=== PATIENT | male | born 1990 | race Caucasian/White ===

== ENCOUNTER 2025-06-11 20:58 | Observation (INO) ==
--- NOTE | 2025-06-11 21:14 | Emergency Department Note ---
ED Provider Note NAME: JAYCEE ROBLEDO III AGE: 34 SEX: M : 1990 ARRIVES VIA: Walk-In INFORMANT: [Patient][, ] ED PROVIDER(S): [Karan Gomes MD] CHIEF COMPLAINT: Outpatient referral for transfusion MEDICAL DECISION MAKING: Patient presents with the above. Patient significantly tachycardic and at the bedside with left-sided abdominal pain. Patient does have a known history of metastases secondary to testicular cancer. Blood work was obtained consent was completed for transfusion as the patient's outpatient blood work had shown thrombocytopenia and anemia with a hemoglobin of 6.3. Patient was ordered 1 L of IV fluids while pending the patient's blood and platelets. Patient was ordered 2 units PRBCs as well as 1 jumbo pack platelets irradiated product as the patient has a history of bone marrow transplant. Patient denies any chest pains or shortness of breath. EKG does show right axis deviation with T wave inversion CT angiography of the chest ordered in addition to CT abdomen pelvis. Discussion w/ other healthcare providers: [None] Prior /Outside records reviewed: [none] Differential diagnosis: [] Diagnostics, as interpreted by me: ECG: Sinus tachycardia, rate of 110, normal intervals, right axis deviation, T wave inversion in V2. No obvious STEMI. Cardiac monitoring: An order was placed for continuous cardiac monitoring. The monitor shows a rate of 135 with tachycardic and regular rhythm. [Patient was placed on pulse oximetry] Medical decision rules: [none] Imaging studies: [I informally interpreted the patient's chest x-ray does not show obvious pneumonia or pneumothorax with formal report to follow.] [] HPI: Patient presents due to concern for abnormal outpatient blood work is referred here for transfusion. Patient reports that he has a history of metastatic testicular cancer with abdominal masses. He states that he had blood work completed through home health and was told that he had low hemoglobin and platelets and was referred here for transfusion. The patient reports that he is a bone marrow transplant recipient. He states he does follow at [facility] in [place]. He does follow with a Dr. Law with oncology. Patient denies any chest pains or shortness of breath. He has had some left-sided abdominal pain but believes that this is secondary to his abdominal mass. He has completed chemotherapy treatment. PAST MEDICAL HISTORY: [See Below] PAST SURGICAL HISTORY: [See Below] SOCIAL HISTORY: [See Below] HOME MEDICATIONS: [See Below] ALLERGIES: [See Below] VITALS: [See Below] PHYSICAL EXAMINATION: GENERAL: NAD, non-toxic. EYE EXAM: Normal conjunctiva. PERRL, no anisocoria and EOM's grossly intact w/o pain. OROPHARYNX: Moist mucus membranes, grossly normal dentition. NECK: Trachea midline, no stridor. LUNGS: Clear to auscultation. Normal chest wall mechanics. HEART: Tachycardic and regular, no MRG. ABDOMEN: Abdomen soft, left-sided abdominal pain, no masses, no rebound or guarding. BACK: No CVA TTP. SKIN: No rashes and no bruising. UPPER EXTREMITIES: Upper extremities are grossly normal. LOWER EXTREMITIES: Grossly normal, no edema. NEURO EXAM: Awake and alert, follows commands, no obvious facial asymmetry, normal speech, moves all 4 extremities. Past Med/Surg History Problem List Social History (System 03/29/24 @ 16:01 by Nany Beard) Smoking Status: Current every day smoker Tobacco Type: Cigarettes Preferred Language: Zimbabwean Feels Safe at Home: Yes Results & Data (ED) Vital Signs Vital Signs - 24 hr 06/11/25 21:06 06/11/25 21:13 06/11/25 22:19 Temperature 37.0 C Temperature Source Oral Pulse Rate 87 146 H Pulse Rate [Apical] 129 H Pulse Rhythm Regular Pulse Strength Normal Respiratory Rate 18 16 Respiratory Effort / Characteristics Non-Labored Spontaneous Non-Labored Spontaneous Respiratory Depth Normal Respiratory Pattern Regular Blood Pressure 126/84 Blood Pressure [Right Arm] 111/85 Blood Pressure Mean 98 Blood Pressure Mean [Right Arm] 93 Blood Pressure Position Semi-fowlers Pulse Oximetry 99 100 Oxygen Delivery Method Room Air Room Air Sepsis Recent Fever Within 48 Hours Yes Sepsis New/Unexplained Change in Mental Status N/A Sepsis Action Taken by Nursing No Action Required 06/11/25 22:19 06/11/25 22:57 Temperature 36.6 C Temperature Source Oral Pulse Rate 126 H 108 H Pulse Rate [Apical] Pulse Rhythm Regular Pulse Strength Normal Respiratory Rate 16 20 Respiratory Effort / Characteristics Respiratory Depth Respiratory Pattern Blood Pressure 126/98 Blood Pressure [Right Arm] Blood Pressure Mean 107 Blood Pressure Mean [Right Arm] Blood Pressure Position Semi-fowlers Pulse Oximetry 100 100 Oxygen Delivery Method Room Air Sepsis Recent Fever Within 48 Hours Sepsis New/Unexplained Change in Mental Status Sepsis Action Taken by Nursing Laboratory Data 06/11/25 21:33 06/11/25 21:33 Lab Results 06/11/25 06/11/25 Range/Units 21:33 21:35 WBC 0.22 L* (4.8-10.8) K/ul RBC 1.97 L (4.70-6.10) M/uL Hgb 6.1 L* (14.0-18.0) g/dL Hct 16.6 L* (42.0-52.0) % MCV 84.3 (80.0-100.0) fL MCH 31.0 (25.0-34.0) pg MCHC 36.7 H (32.0-36.0) g/dL RDW Std Deviation 51.4 H (36.4-46.3) fL RDW Coeff of Aliza 16.7 H (11.5-14.5) % Plt Count 3 L* (130-400) K/uL Neut # (Auto) < 0.50 L* (1.40-6.50) K/uL Sodium 124 L (136-145) mmol/L Potassium 3.3 L (3.5-5.1) mmol/L Chloride 90 L (98-107) mmol/L Carbon Dioxide 22 (21-32) mmol/L Anion Gap 12 H (3-11) BUN 11 (6-23) mg/dl Creatinine 0.64 (0.6-1.4) mg/dl Est Cr Clr Drug Dosing Not Reportable eGFR 126.61 BUN/Creatinine Ratio 17.2 (10-20) Glucose 107 H (70-99(Fasting)) mg/dl Calcium 9.2 (8.6-10.3) mg/dl Magnesium 1.6 L (1.7-2.4) mg/dl Troponin I High Sens 3.4 (0-20) pg/ml TSH 2.112 (0.300-4.500) uIu/ml Blood Type O Positive Antibody Screen NEGATIVE Crossmatch See Detail Administered Medications Discontinued Medications Sodium Chloride (Nss) 1,000 mls @ 999 mls/hr IV .Q1H1M MEAGAN Stop: 06/11/25 22:45 Last Admin: 06/11/25 21:50 Dose: 999 mls/hr Documented By: harriet Ioversol (Optiray 320 125ml) 119 ml IV ONCE ONE Stop: 06/11/25 21:57 Last Admin: 06/11/25 21:56 Dose: 119 ml Documented By: ROCAEL Morphine Sulfate (Morphine Sulfate 4 Mg/Ml 1 Ml Carp\Vial) 4 mg IV NOW STA Stop: 06/11/25 21:45 Last Admin: 06/11/25 22:12 Dose: 4 mg Documented By: ANNE Discharge Plan Visit Data Chief Complaint: Abnormal Labs/Diagnostic Testing Stated Complaint: ABN LABS, REF BY DR NEEDS BLOOD AND PLATELETS ED Provider: Karan Gomes Forms Stand Alone Forms: My [facility] Referrals Referrals: David Collins MD [Primary Care Provider] -
[2025-06-11] MEDS ORDERED: SODIUM CHLORIDE 0.9% 100 ML IV PRN (21:37)
[2025-06-11] MEDS: SODIUM CHLORIDE 0.9% 1,000 ML IV SCH (21:50)
[2025-06-11] MEDS: OPTIRAY 320 125ml IV ONE (21:56)
[2025-06-11] MEDS: MoRPHine SULFATE 4 MG/ML 1 ML CARP\\VIAL IV STA (22:12)
[2025-06-11 22:14] LABS: Magnesium 1.6 mg/dl (1.7-2.4)
[2025-06-11 22:24] LABS: Hematocrit (blood only) 16.6 % (42.0-52.0); Hemoglobin 6.1 g/dL (14.0-18.0); Mean Corpuscular Hemoglobin 31.0 pg (25.0-34.0); Mean Corpuscular Volume 84.3 fL (80.0-100.0); Platelet Count 3 K/uL (130-400); RDW Standard Deviation 51.4 fL (36.4-46.3); Red Blood Count 1.97 M/uL (4.70-6.10); White Blood Count 0.22 K/ul (4.8-10.8)
[2025-06-11 22:29] LABS: Anion Gap 12 (3-11); Blood Urea Nitrogen 11 mg/dl (6-23); Calcium 9.2 mg/dl (8.6-10.3); Carbon Dioxide 22 mmol/L (21-32); Chloride 90 mmol/L (98-107); Glucose 107 mg/dl (70-99(Fasting)); Potassium 3.3 mmol/L (3.5-5.1); Sodium 124 mmol/L (136-145); Thyroid Stimulating Hormone 2.112 uIu/ml (0.300-4.500)
--- NOTE | 2025-06-11 23:11 | CT Scan Report ---
Exam(s): CTA CHEST IV Amt: 119 ml EXAM: CT Angiography Chest With Intravenous Contrast CLINICAL HISTORY: Reason for exam: PE. TECHNIQUE: Axial computed tomographic angiography images of the chest with intravenous contrast. CTDI is 17.2 mGy and DLP is 658.46 mGy-cm. Automated exposure control was utilized for the study. A dose lowering technique was utilized adhering to the principles of ALARA. 119 mL Optiray 320 given IV, with excellent pulmonary arterial enhancement. Mild breathing motion artifact limits evaluation for small or peripheral disease. MIP reconstructed images were created and reviewed. COMPARISON: PET-CT 01/31/2025. FINDINGS: Pulmonary arteries: No pulmonary embolism. Aorta: No aneurysm. Lungs: Pleural-based masses and small right lower lobe pulmonary nodules, have decreased in size, likely metastatic, though not fully evaluated. No consolidation. Pleural space: No significant effusion. No pneumothorax. Heart: No cardiomegaly. No significant pericardial effusion. No evidence of elevated right heart pressures. Bones/joints: No acute fracture. Soft tissues: Multiple hepatic masses are smaller, not fully evaluated, though presumed metastatic. Small hiatal hernia. Lymph nodes: No enlarged lymph nodes. IMPRESSION: 1. No pulmonary embolism. 2. Pulmonary and hepatic lesions are present, likely metastatic, and have improved compared to prior PET-CT. Electronically signed by: Ina Cintron M.D. 06/11/25 23:10 PM
--- NOTE | 2025-06-11 23:22 | CT Scan Report ---
Exam(s): CT ABDOMEN + PELVIS With Contrast IV Amt: 119 ml EXAM: CT Abdomen and Pelvis With Intravenous Contrast CLINICAL HISTORY: Reason for exam: L sided ab pain. TECHNIQUE: Axial computed tomography images of the abdomen and pelvis with intravenous contrast. CTDI is 17.89 mGy and DLP is 890.84 mGy-cm. Automated exposure control was utilized for the study. A dose lowering technique was utilized adhering to the principles of ALARA. CONTRAST: Patient received 119 ml [id number] of IV contrast COMPARISON: PET CT 01/31/2025. FINDINGS: Lung bases: See separately dictated CT chest report. Liver: Multiple masses, have improved, likely metastatic, given history. Gallbladder and bile ducts: No ductal dilation. Pancreas: No ductal dilation, or acute pancreatitis. Spleen: Unremarkable. Adrenals: Unremarkable. Kidneys and ureters: Left percutaneous nephrostomy, mild wall enhancement of a slightly prominent renal pelvis, nonspecific, cannot rule out mild pyelitis. No significant hydronephrosis or pyelonephritis. Stomach and bowel: Intermittent small bowel wall thickening and fluid, nonspecific, cannot rule out enteritis/gastroenteritis, though this could reflect artifact from underdistention. No obstruction. Appendix: Surgically absent. Intraperitoneal space: No free air or fluid. Bones/joints: Stable L1 and progressive L2 bony metastatic disease. No acute fracture. Soft tissues: Unremarkable. Vasculature: No aortic aneurysm. Lymph nodes: Multiple, retroperitoneal lymph nodes/masses, greater on the left, have significantly improved, likely metastatic. Bladder: Unremarkable. Reproductive: Unremarkable as visualized. IMPRESSION: 1. Improved hepatic, retroperitoneal/soft tissue metastatic disease. 2. Suspect progressive bony metastatic disease with new lesion at L2. 3. Mild left pyelitis, with percutaneous nephrostomy in place. No pyelonephritis or hydronephrosis. 4. Possible enteritis/gastroenteritis with small bowel wall thickening and fluid levels. Electronically signed by: Ina Cintron M.D. 06/11/25 23:21 PM
--- NOTE | 2025-06-11 23:24 | XRay Report ---
Exam(s): XR CXR 1 VIEW EXAM: XR Chest, 1 View CLINICAL HISTORY: Reason for exam: weakness. TECHNIQUE: Frontal view of the chest. COMPARISON: Chest CT, same day. FINDINGS: Lungs/Pleural space: Probable 8 mm right upper lobe pulmonary nodule. Remaining known pleural and parenchymal nodules are not well seen on x- ray. No pneumothorax. Heart: No cardiomegaly. Mediastinum: Unremarkable. Bones/Soft Tissues: No acute abnormality. Tubes/Lines: Implanted catheter via the right chest, tip SVC, with dual-lumen catheter also via the right chest, tip SVC. IMPRESSION: 1. Right upper lobe pulmonary nodule and implanted catheters. 2. Remaining known pleural and parenchymal nodules are not well seen on chest x-ray. Electronically signed by: Ina Cintron M.D. 06/11/25 23:23 PM
[2025-06-11] MEDS: CEFEPIME 2000MG 2,000 MG/20 ML SYR IV STA (23:38)
--- NOTE | 2025-06-11 23:40 | History & Physical Report ---
Date of Service June 11, 2025 Assessment & Plan (1) Sepsis: Plan: Assessment and plan below following discussion of case with ED provider and reviewing patient history/pertinent normal/abnormal diagnostic test results. Sepsis Immunocompromised patient hx metastatic testicular cancer status post surgery/chemotherapy/recent HSCT on chronic anti-infective prophylaxis Possible sources include Complicated UTI, left-sided pyelitis on imaging, history of nephrostomy tube placement ? A port infection Diarrhea rule out C. 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 intake ongoing tobacco abuse Admit to med/tele CS, vancomycin and cefepime Check UA Stool C. difficile, Flagyl 1 dose for now given sepsis criteria Transfuse blood products as per discussion between ED provider and [facility] oncologist on-call. Hyponatremia workup, careful correction of sodium, recheck serum sodium after initial fluid bolus given at the ER Replace electrolytes Nicotine patch DVT prophylaxis. SCDs Re: Thrombocytopenia Full code Text document was generated using Editorially voice recognition software. It may contain grammatical or spelling errors. Kindly contact undersigned for clarification of any documentation item in question. History of Present Illness Chief Complaint: Abnormal blood work [facility] History obtained from patient, family, and records. 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 Recent confinement at [facility] last week for second HSCT. Blood product transfusion during confinements due to anemia and thrombocytopenia. Hemoglobin around 8 at discharge last 06/09 as per patient. Watery diarrhea symptoms with usual left-sided abdominal pain upon return home. Denies dysuria. Denies headache, chest pain, cough, SOB. Temperature elevation of 101 Fahrenheit at home. Transient nosebleed at home. Abnormal CBC result on outpatient draw today. Patient directed to ER by [facility] oncologist. Cefepime administered at the ER. Medical History as above Surgical History : Vascular procedure, lymph node biopsy, urologic procedure, intra-abdominal tumor surgery Family History : Heart disease Personal/Social history : 1/2 pack daily, no EtOH intake, currently unemployed Allergies Allergy/AdvReac Type Severity Reaction Status Date / Time silver Allergy Intermediate SKIN Verified 06/11/25 23:04 [From Tegaderm AG Mesh] BLISTERED FROM PATCHES Home Medications Medication Instructions Recorded Confirmed Type acyclovir 800 mg tablet 800 mg PO BID 06/11/25 06/11/25 History cyanocobalamin (vitamin B-12) 100 100 mcg PO DAILY 06/11/25 06/11/25 History mcg tablet fluconazole 200 mg tablet 200 mg PO DAILY 06/11/25 06/11/25 History levofloxacin 500 mg tablet 500 mg PO DAILY 06/11/25 06/11/25 History oxycodone 10 mg tablet 10 mg PO Q4H PRN PAIN, 06/11/25 06/11/25 History MODERATE/SEVERE pantoprazole 20 mg tablet,delayed 20 mg PO DAILY 06/11/25 06/11/25 History release prochlorperazine maleate 10 mg 10 mg PO QID PRN NAUSEA/VOMITING 06/11/25 06/11/25 History tablet Past Med/Surg History Problem List (Updated 06/12/25 @ 02:13 by Campos Mace MD) Sepsis Social History (System 03/29/24 @ 16:01 by Nany Beard) Smoking Status: Current every day smoker Tobacco Type: Cigarettes Preferred Language: Tajik Feels Safe at Home: Yes Review of Systems Review of Systems: As per HPI, all other systems reviewed and negative Physical Exam Physical Exam: GENERAL: Comfortable, pleasant, slightly anxious, no respiratory distress SKIN: Pallor, warm HEENT: Alopecia, pale palpebral conjunctivae, no ptosis, dry buccal mucosa NECK : Supple, no tenderness CHEST : CTA, no tenderness HEART : Tachycardic, no obvious murmurs ABDOMEN: Some distention, nontender EXTREMITIES : No LE swelling/tenderness, palpable pulses, no other conspicuous deformities noted NEUROLOGIC : Coherent, no facial asymmetry, no other gross focality Results & Data Results & Data Vital Signs (Past 12 Hours) Vital Signs Temp Pulse Pulse Resp BP BP Pulse Ox 06/11/25 23:12 37.0 C 107 H 15 120/85 100 06/11/25 22:57 36.6 C 108 H 20 126/98 100 06/11/25 22:19 126 H 16 100 06/11/25 22:19 129 H 16 111/85 100 06/11/25 21:13 146 H 11/24/25 21:06 37.0 C 87 18 126/84 99 O2 Del Method 06/11/25 23:12 06/11/25 22:57 06/11/25 22:19 Room Air 06/11/25 22:19 Room Air 06/11/25 21:13 06/11/25 21:06 Room Air Laboratory Results Laboratory Results WBC 0.22 K/ul (4.8-10.8) L* 06/11/25 21:33 RBC 1.97 M/uL (4.70-6.10) L 06/11/25 21:33 Hgb 6.1 g/dL (14.0-18.0) L* 06/11/25 21:33 Hct 16.6 % (42.0-52.0) L* 06/11/25 21:33 MCV 84.3 fL (80.0-100.0) 06/11/25 21:33 MCH 31.0 pg (25.0-34.0) 06/11/25 21:33 MCHC 36.7 g/dL (32.0-36.0) H 06/11/25 21:33 RDW Std Deviation 51.4 fL (36.4-46.3) H 06/11/25 21:33 RDW Coeff of Aliza 16.7 % (11.5-14.5) H 06/11/25 21:33 Plt Count 3 K/uL (130-400) L* 06/11/25 21:33 Neut # (Auto) < 0.50 K/uL (1.40-6.50) L* 06/11/25 21:33 Sodium 124 mmol/L (136-145) L 06/11/25 21:33 Potassium 3.3 mmol/L (3.5-5.1) L 06/11/25 21:33 Chloride 90 mmol/L (98-107) L 06/11/25 21:33 Carbon Dioxide 22 mmol/L (21-32) 06/11/25 21:33 Anion Gap 12 (3-11) H 06/11/25 21:33 BUN 11 mg/dl (6-23) 06/11/25 21:33 Creatinine 0.64 mg/dl (0.6-1.4) 06/11/25 21:33 Est Cr Clr Drug Dosing Not Reportable 06/11/25 21:33 eGFR 126.61 06/11/25 21:33 BUN/Creatinine Ratio 17.2 (10-20) 06/11/25 21:33 Glucose 107 mg/dl (70-99(Fasting)) H 06/11/25 21:33 Calcium 9.2 mg/dl (8.6-10.3) 06/11/25 21: Magnesium 1.6 mg/dl (1.7-2.4) L 06/11/25 21:33 Troponin I High Sens 3.4 pg/ml (0-20) 06/11/25 21: TSH 2.112 uIu/ml (0.300-4.500) 06/11/25 21:33 Blood Type O Positive 06/11/25 21:35 Antibody Screen NEGATIVE 06/11/25 21: Crossmatch See Detail 06/11/25 21:35 Impressions Chest X-Ray 06/11/25 21:37 Exam(s): XR CXR 1 VIEW EXAM: XR Chest, 1 View CLINICAL HISTORY: Reason for exam: weakness. TECHNIQUE: Frontal view of the chest. COMPARISON: Chest CT, same day. FINDINGS: Lungs/Pleural space: Probable 8 mm right upper lobe pulmonary nodule. Remaining known pleural and parenchymal nodules are not well seen on x- ray. No pneumothorax. Heart: No cardiomegaly. Mediastinum: Unremarkable. Bones/Soft Tissues: No acute abnormality. Tubes/Lines: Implanted catheter via the right chest, tip SVC, with dual-lumen catheter also via the right chest, tip SVC. IMPRESSION: 1. Right upper lobe pulmonary nodule and implanted catheters. 2. Remaining known pleural and parenchymal nodules are not well seen on chest x-ray. Electronically signed by: Ina Cintron M.D. 06/11/25 23:23 PM Abdomen/Pelvis CT 06/11/25 21:40 Exam(s): CT ABDOMEN + PELVIS With Contrast IV Amt: 119 ml [id number] EXAM: CT Abdomen and Pelvis With Intravenous Contrast CLINICAL HISTORY: Reason for exam: L sided ab pain. TECHNIQUE: Axial computed tomography images of the abdomen and pelvis with intravenous contrast. CTDI is 17.89 mGy and DLP is 890.84 mGy-cm. Automated exposure control was utilized for the study. A dose lowering technique was utilized adhering to the principles of ALARA. CONTRAST: Patient received 119 ml [id number] of IV contrast COMPARISON: PET CT 01/31/2025. FINDINGS: Lung bases: See separately dictated CT chest report. Liver: Multiple masses, have improved, likely metastatic, given history. Gallbladder and bile ducts: No ductal dilation. Pancreas: No ductal dilation, or acute pancreatitis. Spleen: Unremarkable. Adrenals: Unremarkable. Kidneys and ureters: Left percutaneous nephrostomy, mild wall enhancement of a slightly prominent renal pelvis, nonspecific, cannot rule out mild pyelitis. No significant hydronephrosis or pyelonephritis. Stomach and bowel: Intermittent small bowel wall thickening and fluid, nonspecific, cannot rule out enteritis/gastroenteritis, though this could reflect artifact from underdistention. No obstruction. Appendix: Surgically absent. Intraperitoneal space: No free air or fluid. Bones/joints: Stable L1 and progressive L2 bony metastatic disease. No acute fracture. Soft tissues: Unremarkable. Vasculature: No aortic aneurysm. Lymph nodes: Multiple, retroperitoneal lymph nodes/masses, greater on the left, have significantly improved, likely metastatic. Bladder: Unremarkable. Reproductive: Unremarkable as visualized. IMPRESSION: 1. Improved hepatic, retroperitoneal/soft tissue metastatic disease. 2. Suspect progressive bony metastatic disease with new lesion at L2. 3. Mild left pyelitis, with percutaneous nephrostomy in place. No pyelonephritis or hydronephrosis. 4. Possible enteritis/gastroenteritis with small bowel wall thickening and fluid levels. Electronically signed by: Ina Cintron M.D. 06/11/25 23:21 PM Chest CTA 06/11/25 21:46 Exam(s): CTA CHEST IV Amt: 119 ml [id number] EXAM: CT Angiography Chest With Intravenous Contrast CLINICAL HISTORY: Reason for exam: PE. TECHNIQUE: Axial computed tomographic angiography images of the chest with intravenous contrast. CTDI is 17.2 mGy and DLP is 658.46 mGy-cm. Automated exposure control was utilized for the study. A dose lowering technique was utilized adhering to the principles of ALARA. 119 mL Optiray 320 given IV, with excellent pulmonary arterial enhancement. Mild breathing motion artifact limits evaluation for small or peripheral disease. MIP reconstructed images were created and reviewed. COMPARISON: PET-CT 01/31/2025. FINDINGS: Pulmonary arteries: No pulmonary embolism. Aorta: No aneurysm. Lungs: Pleural-based masses and small right lower lobe pulmonary nodules, have decreased in size, likely metastatic, though not fully evaluated. No consolidation. Pleural space: No significant effusion. No pneumothorax. Heart: No cardiomegaly. No significant pericardial effusion. No evidence of elevated right heart pressures. Bones/joints: No acute fracture. Soft tissues: Multiple hepatic masses are smaller, not fully evaluated, though presumed metastatic. Small hiatal hernia. Lymph nodes: No enlarged lymph nodes. IMPRESSION: 1. No pulmonary embolism. 2. Pulmonary and hepatic lesions are present, likely metastatic, and have improved compared to prior PET-CT. Electronically signed by: Ina Cintron M.D. 06/11/25 23:10 PM
[2025-06-11] MEDS ORDERED: ACETAMINOPHEN 325 MG TAB PO PRN (23:46)
[2025-06-12] MEDS ORDERED: PROMETHAZINE 6.25 MG/50.25 ML BAG IV PRN (00:22)
[2025-06-12] MEDS ORDERED: LORazepam 0.5 MG TAB PO PRN (00:27)
[2025-06-12] MEDS: NICOTINE 14 MG/24 HR PATCH TD SCH (00:44)
[2025-06-12] MEDS: MAGNESIUM SULFATE / D5W 1 GM/100 ML BAG IV ONE (00:44)
[2025-06-12] MEDS: POTASSIUM CHLORIDE CRTAB 20 MEQ TABCR PO STA ×2 (00:44→11:26)
[2025-06-12 01:33] LABS: Appearance Urine Clear (Clear); Bacteria Urine Automated None Seen (None Seen); Cast Urine Automated 0-2 /lpf (0-2); Epithelial Cell Urine Auto 0-2 /hpf (0-2); Glucose Urine UA Negative (Negative); RBC Urine Automated 0-2 /hpf (0-2); WBC Urine Automated 0-5 /hpf (0-5)
[2025-06-12] MEDS: ACYCLOVIR 400 MG TAB PO SCH (01:55)
[2025-06-12] MEDS ORDERED: VANCOMYCIN CONSULT ACTIVE PRN (02:13)
[2025-06-12] MEDS: metroNIDAZOLE 500 MG/100 ML BAG IV STA (02:36)
[2025-06-12] MEDS: VANCOMYCIN HCL 2,000 MG in SODIUM CHLORIDE 0.9% 500 ML IV STA (03:40)
--- NOTE | 2025-06-12 03:55 | Pharmacy Report ---
Pharmacy PK ABX Note - Date of Service June 12, 2025 - Assessment and Plan Assessment 34 year old M receiving cefepime/vancomycin for treatment of neutropenic fever source diarrhea?/port infection?/UTI?. PMH includes metastatic testicular cancer status post hematopoetic stem cell transplant at [facility] last week. Pertinent microbiologic data includes: negative MRSA Nasal Swab, blood cultures pending. Day # 1 of antimicrobial therapy. Plan Vancomycin * Loading dose: 2000 mg IV x 1 * Maintenance dose: 1250 mg IV every 8 hours * Regimen is predicted to achieve target AUC/AMBER of 400-600 mg/L.hr * Trough level ordered for: 06/13/25 @1130 Pharmacy will continue to follow and will adjust dose/frequency as necessary. Thank you. Pharmacy has transitioned to AUC monitoring for vancomycin. AUC/AMBER is the preferred PK/PD target and is associated with decreased risk of nephrotoxicity compared to traditional trough targets.
[2025-06-12 07:35] LABS: Alanine Aminotransferase 9.0 U/L (7-52); Albumin Globulin Ratio 1.1 (0.9-2); Albumin Level 3.6 gm/dl (3.4-5.0); Alkaline Phosphatase 97.0 U/L (34-104); Anion Gap 9.0 (3-11); Bilirubin,Total 1.9 mg/dl (0.2-1.0); Blood Urea Nitrogen 9.0 mg/dl (6-23); Calcium 8.8 mg/dl (8.6-10.3); Carbon Dioxide 22.0 mmol/L (21-32); Chloride 96.0 mmol/L (98-107); Creatinine Clr Calc Pharmacy 248.0 ml/min; Globulin 3.3 gm/dl (2.5-4.0); Glucose 95.0 mg/dl (70-99(Fasting)); Potassium 3.4 mmol/L (3.5-5.1); Sodium 127.0 mmol/L (136-145); Total Protein 6.9 gm/dl (6.0-8.3)
[2025-06-12 07:57] LABS: White Blood Count 0.31 K/ul (4.8-10.8)
[2025-06-12 08:11] LABS: Platelet Count 8 K/uL (130-400)
[2025-06-12 08:21] LABS: Mean Corpuscular Hemoglobin 29.5 pg (25.0-34.0); Mean Corpuscular Volume 81.7 fL (80.0-100.0); RDW Standard Deviation 51.2 fL (36.4-46.3); Red Blood Count 2.51 M/uL (4.70-6.10)
[2025-06-12] MEDS: CEFEPIME 2000MG 2,000 MG/20 ML SYR IV SCH (08:23)
[2025-06-12] MEDS: FLUCONAZOLE 100 MG TAB PO SCH (08:23)
[2025-06-12] MEDS: CYANOCOBALAMIN (B-12) 100 MCG TABLET PO SCH (08:23)
[2025-06-12 08:24] LABS: Hematocrit (blood only) 20.5 % (42.0-52.0); Hemoglobin 7.4 g/dL (14.0-18.0)
[2025-06-12] MEDS ORDERED: SODIUM CHLORIDE 0.9% 100 ML IV PRN (10:42)
--- NOTE | 2025-06-12 11:34 | Discharge Summary ---
Date of Service June 12, 2025 Admission HPI Per Admitting Provider History obtained from patient, family, and records. 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 Recent confinement at [facility] last week for second HSCT. Blood product transfusion during confinements due to anemia and thrombocytopenia. Hemoglobin around 8 at discharge last 06/09 as per patient. Watery diarrhea symptoms with usual left-sided abdominal pain upon return home. Denies dysuria. Denies headache, chest pain, cough, SOB. Temperature elevation of 101 Fahrenheit at home. Transient nosebleed at home. Abnormal CBC result on outpatient draw today. Patient directed to ER by [facility] oncologist. Cefepime administered at the ER. Medical History as above Surgical History : Vascular procedure, lymph node biopsy, urologic procedure, intra-abdominal tumor surgery Family History : Heart disease Personal/Social history : 1/2 pack daily, no EtOH intake, currently unemployed Admission Exam Per Admitting Provider GENERAL: Comfortable, pleasant, slightly anxious, no respiratory distress SKIN: Pallor, warm HEENT: Alopecia, pale palpebral conjunctivae, no ptosis, dry buccal mucosa NECK : Supple, no tenderness CHEST : CTA, no tenderness HEART : Tachycardic, no obvious murmurs ABDOMEN: Some distention, nontender EXTREMITIES : No LE swelling/tenderness, palpable pulses, no other conspicuous deformities noted NEUROLOGIC : Coherent, no facial asymmetry, no other gross focality Principal Diagnosis Possible sepsis Pancytopenia Discharge Exam Constitutional + well hydrated; no acute distress Eyes PERRL, conjunctivae normal, anicteric sclerae ENMT external ear and nose normal, oropharynx normal Respiratory normal respiratory effort, lungs clear to auscultation Cardiovascular Rate/Rhythm: regular rate and regular rhythm Gastrointestinal (Abdomen) Soft, nontender, normal bowel sounds Musculoskeletal No pedal edema Neurologic PERRL, EOMI, accommodation nl, no face palsy, no dysarthria Genitourinary Left nephrostomy tube Discharge Data Allergies Allergy/AdvReac Type Severity Reaction Status Date / Time silver Allergy Intermediate SKIN Verified 06/11/25 23:04 [From Tegaderm AG Mesh] BLISTERED FROM PATCHES Consultations 06/11/25 23:43 ED Decision to Admit Stat Ordered Studies 06/11/25 21:40 CT abd pelvis IV con only Stat 06/11/25 21:46 CT angio chest PE protocol Stat Hospital Course (1) Sepsis: (2) Pancytopenia: (3) Hypokalemia: (4) Hyponatremia: (5) History of metastatic neoplastic disease: Plan 34 year old man with history of metastatic testicular cancer status post surgery/chemotherapy/recent HSCT on chronic anti-infective prophylaxis who was sent in for abnormal labs He reported fever some days ago Got second HSCT last week Labs on admission was notable for WBC of 0.22, Hb 6.1, Platelet of 3, Na 124, K 3.3 CT PE did not show any PE but noted pulm and hepatic lesions are present and improved compared to prior PET CT abd noted improved hepatic, retroperitoneal metastatic disease, suspect progressive bony metastatic disease with new lesion at L2, mild left pyelitis with PCH in place. No pyelonephritis or hydronephrosis. Possible enteritis/gastroenteritis Considering neutropenia, tachycardia and report of fever, patient was started on IV antibiotics for sepsis Infectious workup/cultures were also sent He got 2 PRBC, 1 unit of platelet with Hb improving 7.4 and Platelet to 8 Patient stated he wants to go home today I explained to the patient about need to await preliminary results of blood cultures, replete electrolyte and transfuse platelet He agreed to get another unit of platelet but declined staying for further eval/treatment for possible sepsis despite counseling on risk Patient signed out AMA Total Time Total Time Spent Total Time Spent (In Minutes): 50 Total Time Includes: Examination of the Patient, Discharge Planning and Medication Reconciliation Discharge Plan Discharge Items Patient Disposition: Against Medical Advice Reason For Visit: SEPSIS Activity: Resume your previous activity Non-emergency contact: Primary Care Provider Follow-up/Referrals: David Collins MD [Primary Care Provider] - Pending Studies at Discharge: Yes Stand-Alone Forms: [employer], Smoking Cessation Medications and DC Order Prescriptions: Continued cyanocobalamin (vitamin B-12) 100 mcg tablet 100 mcg PO DAILY fluconazole 200 mg tablet 200 mg PO DAILY prochlorperazine maleate 10 mg tablet 10 mg PO QID PRN (Reason: NAUSEA/VOMITING) acyclovir 800 mg tablet 800 mg PO BID pantoprazole 20 mg tablet,delayed release (DR/EC) 20 mg PO DAILY levofloxacin 500 mg tablet 500 mg PO DAILY oxycodone 10 mg tablet 10 mg PO Q4H PRN (Reason: PAIN, MODERATE/SEVERE) Discharge Orders: Left Against Medical Advice (Routine); Ordered 06/12/25 Ordered By: Aicha May Admission Data Admit Date/Time: 06/11/25 23:43 Attending Provider: Aicha May I. Admit Provider: Campos Mace Primary Care Provider: David Collins Other Providers: Campos Mace
[2025-06-12] MEDS ORDERED: VANCOMYCIN HCL 1,250 MG in SODIUM CHLORIDE 0.9% 250 ML IV SCH (12:00)
--- NOTE | 2025-06-12 13:04 | Electrocardiogram Report ---
Test Reason : Blood Pressure : */* mmHG Vent. Rate : 110 BPM Atrial Rate : 110 BPM P-R Int : 124 ms QRS Dur : 76 ms QT Int : 316 ms P-R-T Axes : * 137 129 degrees QTcB Int : 427 ms Possible limb lead reversal Sinus tachycardia Left posterior fascicular block Abnormal ECG No previous ECGs available Confirmed by Stan Burciaga ([id number]) on 06/12/2025 1:04:26 PM Referred By: NO PCP Confirmed By: Stan Burciaga
[2025-06-12] MEDS ORDERED: REMOVE NICODERM PATCH SCH (20:59)
== END 2025-06-12 11:35 | disposition left against medical advice (07) | DRG 872 ==
LOC: ED 20:58 → INTOOBSV 23:43 → EDINP 23:43 → SUATTDRO 23:43 → EDINP 06-12 02:14